=== PATIENT | male | born 2000 | race Hispanic/Latino ===

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

== ENCOUNTER 2024-05-07 23:20 | Emergency (ER) | payer SELFPAY ==
[~2024-05-07] VITALS: Ht 180.3 cm; Wt 112.9 kg
[2024-05-08 00:27] LABS: BASOPHILS # (AUTO) 0.03 K/uL (0.00-0.20); BASOPHILS % (AUTO) 0.3 % (0.0-5.0); EOSINOPHILS # (AUTO) 0.11 K/uL (0.00-0.70); HEMATOCRIT 48.2 % (42-54); IMMATURE GRANULOCYTE ABSOLUTE 0.04 K/uL (0-1); LYMPHOCYTES # (AUTO) 1.8 K/uL (1.0-4.8); LYMPHOCYTES % (AUTO) 16.1 % (21.0-51.0); MEAN CORPUSCULAR HEMOGLOBIN 29.4 pg (27.0-33.0); MEAN CORPUSCULAR VOLUME 86.4 fL (79-99); MONOCYTES # (AUTO) 0.6 K/uL (0.1-1.0); MONOCYTES % (AUTO) 5.3 % (3.0-13.0); NEUTROPHILS # (AUTO) 8.7 K/uL (1.8-7.7); NEUTROPHILS % (AUTO) 76.9 % (40.0-77.0); PLATELET COUNT (AUTO) 197 K/uL (130-400); RED BLOOD CELL COUNT(AUTO) 5.58 MIL/uL (4.50-6.20); WHITE BLOOD COUNT (AUTO) 11.2 K/uL (4.8-10.8)
[2024-05-08 00:34] LABS: CREATININE 0.9 mg/dL (0.5-1.3); POTASSIUM 3.9 mmol/L (3.5-5.1)
--- NOTE | 2024-05-08 02:06 | ERN ---
ED Note History of Present Illness Stated Complaint: HEADACHE Chief Complaint: Headache Time Seen by MD: 23:23 Time Seen by Midlevel: 23:23 Dictation: The Patient is a 23-year-old male with no past medical history who presents to the emergency department with complaints of generalized headache onset four days ago. Patient also reports feeling "brain fog" reports occasional dizziness. Denies any head trauma, use of blood thinners, nausea or vomiting. Patient reports he was seen by his primary doctor today in told him it was stress related. Allergies: Coded Allergies: No Known Drug Allergies (Unverified Allergy, Unknown, 05/08/24) Past Medical History Past Medical History: No Pertinent History Surgical History: None RN Note Reviewed/Agreed w/PFSH: Yes Review of System Dictation Constitutional: Negative for fever,chills, and weight loss Eyes: Negative for injury, pain,redness, and discharge ENT: Negative for injury,pain or swelling Cardiovascular: Negative for chest pain, palpitations, and edema Respiratory: Negative for shortness of breath, cough, and wheezing, Abdomen/GI: Negative for abdominal pain, nausea, vomiting, diarrhea, and constipation Back: Negative for injury and pain : Negative for injury, bleeding and discharge MS/Extremity: Negative for injury and deformity Skin: Negative for rash, and discoloration Neuro: Negative for , weakness, numbness, tingling, and seizure positive for headache Psych: Negative for suicide ideation, homicidal ideation, and hallucinations Initial Vital Sign VS Vital Signs Date Time Temp Pulse Resp B/P (MAP) Pulse Ox O2 Delivery O2 Flow Rate FiO2 05/07/24 23:22 98.1 99 20 184/79 99 Room Air 0 05/08/24 03:48 21 Physical Exam Dictation Vital Signs reviewed General Appearance: Alert, oriented x 3, no acute distress, well developed, nourished. Head and Face: non-traumatic. Eyes: PERRL, pink conjunctivas, eyelid no trauma, anterior chamber with arcus senilis. Ears: Pinnas intact and no signs of trauma or erythema ear canals clear and no discharge TM no erythema Nose: No discharge, no bleeding. Oropharynx: Mouth normal, tongue pink. pharynx clear,no erythema, tonsils no exudates, no abscesses noted, mucous membrane moist Neck: Supple, non-tender, no thyromegaly, no masses, no JVD, no bruits Breast:Deferred Chest:No tenderness, no crepitus, no paradoxical movement, no retractions Lungs:Clear, well-ventilated, symmetric, no rales, no wheezing, no rhonchi, no stridor, good breath sounds bilaterally Heart: Regular rate, regular rhythm, no murmur, no gallops Vascular: no peripheral edema, Abdomen: Soft, positive bowel sounds, nondistended, no guarding, nontender, no rebound, no masses no hepatomegaly, no splenomegaly, no Marin's sign, no hernias. Rectal: Deferred Genital: Deferred Neurological: Normal speech, motor function intact, sensory function intact , no facial droop, no slurred speech, upper extremities equal in strength, lower extremities equal in strength Musculoskeletal: Neck nontender, full range of motion, back nontender, full range of motion, Extremities: nontender, full range of motion Skin: Color pink, dry, no turgor, no rash, no lacerations, no abrasions, no contusions. Lymphatic: Deferred Results (Laboratory/Radiology) Laboratory/Radiology Laboratory Tests Test 05/08/24 00:17 05/08/24 03:51 White Blood Count 11.2 K/uL (4.8-10.8) H Red Blood Count 5.58 MIL/uL (4.50-6.20) Hemoglobin 16.4 g/dL (14.0-18.0) Hematocrit 48.2 % (42-54) Mean Corpuscular Volume 86.4 fL (79-99) Mean Corpuscular Hemoglobin 29.4 pg (27.0-33.0) Mean Corpuscular Hemoglobin Concent 34.0 g/dL (32.0-36.0) Red Cell Distribution Width 12.0 % (11.0-15.5) Platelet Count 197 K/uL (130-400) Mean Platelet Volume 10.3 fL (7.5-10.5) Immature Granulocyte % (Auto) 0.4 % (0-1) Neutrophils (%) (Auto) 76.9 % (40.0-77.0) Lymphocytes (%) (Auto) 16.1 % (21.0-51.0) L Monocytes (%) (Auto) 5.3 % (3.0-13.0) Eosinophils (%) (Auto) 1.0 % (0.0-8.0) Basophils (%) (Auto) 0.3 % (0.0-5.0) Neutrophils # (Auto) 8.7 K/uL (1.8-7.7) H Lymphocytes # (Auto) 1.8 K/uL (1.0-4.8) Monocytes # (Auto) 0.6 K/uL (0.1-1.0) Eosinophils # (Auto) 0.11 K/uL (0.00-0.70) Basophils # (Auto) 0.03 K/uL (0.00-0.20) Absolute Immature Granulocyte (auto 0.04 K/uL (0-1) Nucleated Red Blood Cells 0.0 % (0.0-0.19) Sodium Level 141 mmol/L (136-145) Potassium Level 3.9 mmol/L (3.5-5.1) Chloride Level 104 mmol/L (101-111) Carbon Dioxide Level 33 mmol/L (21-32) H Blood Urea Nitrogen 17 mg/dL (7-18) Creatinine 0.9 mg/dL (0.5-1.3) Glomerular Filtration Rate Calc 122 mL/min (>90) Random Glucose 99 mg/dL (70-105) Total Calcium 8.8 mg/dL (8.5-10.1) Urine Color YELLOW (YELLOW) Urine Appearance CLEAR (CLEAR) Urine pH 7.0 (5.0-8.0) Urine Specific [place] 1.030 (1.001-1.031) Urine Protein 20 mg/dL (NEGATIVE) H Urine Glucose (UA) NEGATIVE mg/dL (NEGATIVE) Urine Ketones 60 mg/dL (NEGATIVE) H Urine Occult Blood NEGATIVE (NEGATIVE) Urine Nitrate NEGATIVE (NEGATIVE) Urine Bilirubin NEGATIVE mg/dL (NEGATIVE) Urine Urobilinogen 2.0 mg/dL (0.2-1.0) H Urine Leukocyte Esterase NEGATIVE [place]/uL Urine RBC 2-5 /HPF (0-1) H Urine WBC 2-5 /HPF (0-1) H Urine Bacteria RARE /HPF (None Seen) Influenza Type A Antigen Negative For Type A Influenza Type B Antigen Negative For Type B SARS-CoV-2 Antigen (Rapid) PRESUMPTIVE NEGATIVE Labs Reviewed?: Yes ED Course ED Course Orders Procedure Category Date Status Time Cbc With Differential LAB 05/07/24 Complete 23:37 Basic Metabolic Panel LAB 05/07/24 Complete 23:37 Covid19 (Sars Antigen LAB 05/07/24 Complete Rapid) 23:37 Influenza Type A & B, LAB 05/07/24 Complete Rapid 23:37 Metoclopramide 10 PHA 05/08/24 Complete Mg/2 Ml Vial (Reglan 1 00:00 Diphenhydramine Hcl PHA 05/08/24 Complete (Benadryl Inj) 00:00 Acetaminophen 500mg PHA 05/08/24 Complete Tab (Tylenol 500mg T 00:00 0.9%Nacl 1000ml (Ns PHA 05/08/24 Complete 1000ml) 00:00 Urinalysis Profile LAB 05/08/24 In Process 00:40 Drug Screen Urine LAB 05/08/24 In Process 00:40 Ct Head/Brain W/O CT 05/08/24 Taken Contrast 01:52 12 Lead Ekg Tracing- EKG 05/08/24 Logged Technical 04:15 Current Medications Medications (Trade) Dose Ordered Sig/Terrence Route PRN Reason Start Time Stop Time Status Last Admin Dose Admin Acetaminophen (TYLenol 500MG TAB) 1,000 mg ONCE ONCE PO 05/08/24 00:00 05/08/24 00:51 DC 05/08/24 03:35 Diphenhydramine HCl (BENAdryl INJ) 25 mg ONCE ONCE IV 05/08/24 00:00 05/08/24 00:51 DC 05/08/24 03:34 Metoclopramide HCl (regLAN 10MG IV) 10 mg ONCE ONCE IVP 05/08/24 00:00 05/08/24 00:51 DC 05/08/24 03:34 Sodium Chloride 1,000 ml @ 0 mls/hr ONCE ONCE IV 05/08/24 00:00 05/08/24 00:51 DC 05/08/24 03:35 Vital Signs Date Time Temp Pulse Resp B/P (MAP) Pulse Ox O2 Delivery O2 Flow Rate FiO2 05/08/24 03:48 98.2 72 16 150/78 98 Room Air* 0 21 05/07/24 23:22 98.1 99 20 184/79 99 Room Air 0 Medical Decision Making MDM The Patient is a 23-year-old male with no past medical history who presents to the emergency department with complaints of generalized headache onset four days ago. Patient also reports feeling "brain fog" reports occasional dizziness. Denies any head trauma, use of blood thinners, nausea or vomiting. Patient reports he was seen by his primary doctor today in told him it was stress related. CT head without contrast reveals no acute intracranial findings with mild sinus disease. DX & DISP Disposition: Discharge Departure Impression: Primary Impression: Sinusitis Condition: Stable Scripts Fluticasone Propionate (Flonase Nasal [place]) 50 Mcg/Actuation [place] 2 SPRAY NS DAILY for 7 Days, #16 GM 0 Refills Prov: CHANO TORRES 05/08/24 Amoxicillin/Potassium Clav (Amox Tr-K Clv 875-125 mg Tab) 875 Mg-125 Mg Tablet 1 EACH PO BID for 7 Days, #14 TAB 0 Refills Prov: CHANO TORRES 05/08/24 Additional Instructions: Your blood work today is unremarkable. Your CT scan of the head shows mild sinus disease consistent with sinusitis. I have given you a nasal spray and antibiotics for outpatient management. Please follow up with the primary care doctor for repeat evaluation. Referrals: ELMA OROZCO (PCP) I have reviewed the case, and I agree with, Diagnosis and Plan I performed the substantive portion of the visit. I have reviewed and personally made and approve the management plan that is documented in the note by myself or the ROJELIO. I acknowledge for responsibility for the patient's management plan. ROSIE GRECO May 08, 2024 02:06 CHANO TORRES May 08, 2024 04:47
[2024-05-08] MEDS: 0.9%NACL 1000ML 1,000 ML IV ONE (03:17)
[2024-05-08] MEDS: metoCLOPRAmide 10 MG/2 ML VIAL IVP ONE (03:17)
[2024-05-08] MEDS: DiphenhydrAMINE HCL 50 MG/ML VIAL IV ONE (03:17)
[2024-05-08] MEDS: acetaMINOPHEN 500 MG TABLET PO ONE (03:17)
[2024-05-08 04:24] LABS: ADD UA MICROSCOPIC YES; APPEARANCE,URINE CLEAR (CLEAR); BILIRUBIN,URINE NEGATIVE (NEGATIVE); COLOR,URINE YELLOW (YELLOW); GLUCOSE, URINE (UA) NEGATIVE (NEGATIVE); KETONES,URINE 60 mg/dL (NEGATIVE); LEUKOCYTE ESTERASE ,URINE NEGATIVE Leu/uL (NEGATIVE); NITRATE,URINE NEGATIVE (NEGATIVE); OCCULT BLOOD,URINE NEGATIVE (NEGATIVE); PROTEIN,URINE 20 mg/dL (NEGATIVE)
[2024-05-08 04:26] LABS: COVID19 (SARS ANTIGEN RAPID) PRESUMPTIVE NEGATIVE (NEGATIVE)
[2024-05-08 04:27] LABS: BACTERIA,URINE RARE /HPF (None Seen); INFLUENZA TYPE A Negative For Type A (NEGATIVE); INFLUENZA TYPE B Negative For Type B (NEGATIVE); MUCUS,URINE RARE LPF (None Seen)
[2024-05-08 04:31] LABS: AMPHET/METH SCREEN,URINE NEGATIVE (NEGATIVE); BARBITURATE SCREEN, URINE NEGATIVE (NEGATIVE); BENZODIAZEPINES SCREEN,URINE NEGATIVE (NEGATIVE); CANNABINOID SCREEN,URINE NEGATIVE (NEGATIVE); COCAINE SCREEN,URINE NEGATIVE (NEGATIVE); OPIATE SCREEN,URINE NEGATIVE (NEGATIVE); PHENCYCLIDINE SCREEN,URINE NEGATIVE (NEGATIVE)
[2024-05-08] MEDS ORDERED: FLUT16H NS (04:37)
[2024-05-08] MEDS ORDERED: AMOX1TAB16 PO (04:37)
[2024-05-08 04:52] VITALS: BP 145/72; PULSE 89; RESP 16; TEMP 98.3; O2SAT 98
--- NOTE | 2024-05-08 08:09 | HMCIMG ---
Exam Type: CT HEAD/BRAIN W/O CONTRAST Clinical Information: headache, dizzy Comparison: None CT Dose Index (CTDI): 57.33 mGy Dose Length Product (DLP): 956.79 total mGy-cm Findings: The examination is unremarkable. Jenog-white matter junction is preserved. No intra or extra axial lesions or fluid collections are seen. Specifically, jeong and white matter are normal in signal characteristics with normal caliber of ventricles and periventricular cisterns with no evidence of intra or or extra-axial hemorrhage, lacunar infarct, or major territorial infarct, mass, or other abnormality. There are no infarcts. There are no hemorrhages. Periventricular white matter locations are preserved. The orbital contents and structures of the posterior fossa are intact. Impression: Normal CT of the head. This study was performed using dose reduction techniques to include automated exposure control and/or adjustment of the mA and/or kV according to patient size.
--- NOTE | 2024-05-08 08:36 | EKG ---
[facility] Test Date: 2024-05-08 Test Time: 04:49:05 Pat Name: CY HOWARD Department: ED Patient ID: [facility] [id number] Room: Gender: M Dining Room Tables Set Up Attendant: [id number] : 2000 Requested By: MIMI BUCKLEY Order Number: [id number] Reading MD: Del Dalal Measurements Intervals [place] Rate: 70 P: 65 CT: 165 QRS: 52 QRSD: 103 T: 19 QT: 380 QTc: 410 Interpretive Statements Sinus rhythm ST elev, probable normal early repol pattern No previous ECG available for comparison Electronically Signed On 05-08-2024 23:34:20 CDT by Del Dalal Please click the below link to view image of tracing.
== END 2024-05-08 05:00 | disposition home or self-care (01) ==
LOC: EDH 23:20
DX: J32.9 Chronic sinusitis, unspecified (principal); Z20.822 Contact with and (suspected) exposure to COVID-19; Z79.899 Other long term (current) drug therapy
CPT/HCPCS: 99285; 87426; 80048; 80305; 85025; 87804 ×2; 36415; 81001; 96374; 70450; 96361; 96375; 93005; J1200; J7030; J2765